=== PATIENT | male | born 1945 | race Caucasian/White ===

== ENCOUNTER 2023-09-11 14:36 | Outpatient (CLI) | payer BC | END 2023-09-11 14:37 | disposition home or self-care (01) | LOC: CSHMRI 14:36 | PROVIDERS: ATTEND Orthopaedic Surgery | DX: M54.31 Sciatica, right side (principal); M47.816 Spondylosis without myelopathy or radiculopathy, lumbar region; M48.061 Spinal stenosis, lumbar region without neurogenic claudication | CPT/HCPCS: 72158; 82565 ==